=== PATIENT | female | born 1980 | race Two or more races ===

== ENCOUNTER 2018-01-25 12:59 | Inpatient (IN) | payer OTHER ==
[~2018-01-25] VITALS: Ht 165.1 cm; Wt 98.9 kg
[2018-02-02] MEDS ORDERED: PRENATAL TABLE1 EAC2 PO (02:08)
== END 2018-02-04 11:43 | DRG 775 ==
LOC: LDR 02-02 01:10 → SURG-SUITE 02-02 01:10 → OB/GYN 02-02 02:20 → LDR 02-02 03:16 → SURG-SUITE 02-02 13:19 → LDR 02-17 13:00
PROC: 0DQR0ZZ Repair Anal Sphincter, Open Approach (ICD-10-PCS; principal; 2018-02-02)
PROC: 0W8NXZZ Division of Female Perineum, External Approach (ICD-10-PCS; 2018-02-02)
PROC: 10E0XZZ Delivery of Products of Conception, External Approach (ICD-10-PCS; 2018-02-02)
PROC: 4A1HXCZ Monitoring of Products of Conception, Cardiac Rate, External Approach (ICD-10-PCS; 2018-02-02)
PROC: 3E033VJ Introduction of Other Hormone into Peripheral Vein, Percutaneous Approach (ICD-10-PCS; 2018-02-02)
PROC: 4A033R1 Measurement of Arterial Saturation, Peripheral, Percutaneous Approach (ICD-10-PCS; 2018-02-02)
DX: O70.23 Third degree perineal laceration during delivery, IIIc (principal); O42.02 Full-term premature rupture of membranes, onset of labor within 24 hours of rupture; Z3A.37 37 weeks gestation of pregnancy; Z37.0 Single live birth; Z22.330 Carrier of Group B streptococcus

== ENCOUNTER 2018-08-26 15:37 | Inpatient (IN) | payer OTHER ==
[~2018-08-26] VITALS: Ht 165.1 cm; Wt 86.2 kg
[~2018-08-26 15:37] MED LIST: PRENATAL TABLE1 EAC2 PO
--- NOTE | 2018-08-26 15:40 | NUR ---
SE RECIBE PTE ALERTA Y ORIENTADA X3, PTE REFIERE VENIR POR PANCREATITIS Y PIEDRAS EN LA VESICULA. PTE REFIERE JUSTIN ESTADO EN [facility] Y ELLOS SON LOS QUE LA REFIRIERON PARA [facility].
--- NOTE | 2018-08-26 17:35 | NUR ---
PACIENTE ALERTA Y ORIENTADA EVALUADA POR EL DR. DONALD SE ORIENTA A PACINETE SOBRE TRATAMIENTO MEDICO SE EXTRAEN MUESTRAS DE SIMON Y SE ADMINISTRAN MEDICAMENTOS ELVIRA ORDEN MEDICA BAJO MEDIDAS ASEPTICAS.
[2018-08-31] MEDS ORDERED: ZANTAC150 MG PO (11:03)
[2018-08-31] MEDS ORDERED: INVANZ1 GM IV (11:04)
[2018-08-31] MEDS ORDERED: ULTRACET PO (11:04)
== END 2018-08-31 17:52 | disposition home or self-care (01) | DRG 417 ==
LOC: ER 15:37 → SURG 22:53
PROVIDERS: Surgery; ADMIT Internal Medicine
PROC: BW40ZZZ Ultrasonography of Abdomen (ICD-10-PCS; 2018-08-26)
PROC: BF37ZZZ Magnetic Resonance Imaging (MRI) of Pancreas (ICD-10-PCS; 2018-08-26)
PROC: 02HV33Z Insertion of Infusion Device into Superior Vena Cava, Percutaneous Approach (ICD-10-PCS; 2018-08-27)
PROC: 0DNW4ZZ Release Peritoneum, Percutaneous Endoscopic Approach (ICD-10-PCS; 2018-08-30)
PROC: 0FT44ZZ Resection of Gallbladder, Percutaneous Endoscopic Approach (ICD-10-PCS; principal; 2018-08-30 12:00)
DX: K80.10 Calculus of gallbladder with chronic cholecystitis without obstruction (principal); K85.10 Biliary acute pancreatitis without necrosis or infection; K66.0 Peritoneal adhesions (postprocedural) (postinfection); E86.0 Dehydration

== ENCOUNTER 2018-09-04 14:29 | Emergency (ER) | payer OTHER ==
[~2018-09-04] VITALS: Ht 165.1 cm; Wt 81.6 kg
[~2018-09-04 14:29] MED LIST changes: +INVANZ1 GM IV; +ULTRACET PO; +ZANTAC150 MG PO
== END 2018-09-04 16:07 | disposition home or self-care (01) ==
LOC: ER 14:29
DX: Z45.2 Encounter for adjustment and management of vascular access device (principal)

== ENCOUNTER 2022-10-06 17:27 | Emergency (ER) | payer OTHER ==
[~2022-10-06] VITALS: Ht 160 cm; Wt 82.6 kg
== END 2022-10-06 20:36 | disposition home or self-care (01) ==
LOC: ER 17:27
DX: H66.91 Otitis media, unspecified, right ear (principal)

== ENCOUNTER 2023-06-23 10:33 | Emergency (ER) | payer OTHER ==
[~2023-06-23] VITALS: Ht 162.6 cm; Wt 74.8 kg
[2023-06-23] MEDS ORDERED: DUI500 PO (11:00)
[2023-06-23] MEDS ORDERED: DICLOFENAC SODI75 MG PO (11:00)
== END 2023-06-23 11:12 | disposition home or self-care (01) ==
LOC: ER 10:33
DX: H66.92 Otitis media, unspecified, left ear (principal)

== ENCOUNTER 2025-05-02 08:37 | Emergency (ER) | payer OTHER ==
[~2025-05-02] VITALS: Ht 162.6 cm; Wt 76.7 kg
[~2025-05-02 08:37] MED LIST changes: +DICLOFENAC SODI75 MG PO; +DUI500 PO
[2025-05-02] MEDS ORDERED: ONDANSETRON HCL 2 MG/ML VIAL IV STA (10:17)
[2025-05-02] MEDS ORDERED: 0.9 % SODIUM CHLORIDE 1,000 ML IV STA (10:17)
[2025-05-02] MEDS ORDERED: FAMOTIDINE/PF 20 MG/2 ML VIAL IV STA (10:17)
[2025-05-02] MEDS ORDERED: ONDANSETRON HCL 2 MG/ML VIAL ONE (10:26)
[2025-05-02] MEDS ORDERED: FAMOTIDINE/PF 20 MG/2 ML VIAL ONE (10:26)
[2025-05-02 11:18] LABS: BASO % 1.0 % (0.1-1.2); EOS # 0.06 (0.04-0.54); EOS % 1.0 % (0.7-7.0); LYMPH # 1.34 (1.18-3.74); LYMPH % 21.5 % (19.3-53.1); MEAN PLATELET VOLUME 11.20 fl (9.4-12.4); MONO # 0.35 (0.24-0.82); MONO % 5.6 % (4.7-12.5); NEUT # 4.42 (1.56-6.13); NEUT % 70.7 % (34.0-71.1); RED CELL DISTRIBUTION WIDTH 16.9 % (11.6-14.4)
[2025-05-02 11:26] LABS: ERYTHROCYTE SEDIMENTATION RATE 27 mm/hr (0-20)
[2025-05-02 11:33] LABS: URINE APPEARANCE Clear; URINE BILIRRUBIN Negative (NEGATIVE); URINE BLOOD Negative; URINE COLOR Yellow; URINE GLUCOSE Negative (NEGATIVE); URINE KETONE Trace (NEGATIVE); URINE LEUKOCYTE Negative; URINE NITRATE Negative; URINE PROTEIN Negative (NEGATIVE); URINE UROBILINOGEN 0.2 E.U./dl
[2025-05-02 11:38] LABS: URINE BACTERIA 137.2 uL (0.0-1933); URINE EPITHELIAL CELLS 25.4 uL (0.0-38.8); URINE RBC 2.8 uL (0.0-20.8); URINE WBC 2.9 uL (0.0-23.2)
[2025-05-02 11:43] LABS: ALT/SGPT 21 U/L (12-78); AST/SGOT 13 U/L (15-37); BILIRUBIN TOTAL 0.32 mg/dL (0.3-1.2); BUN CREA RATIO 18 (7.0-25.0); CREATININE SERUM 0.61 mg/dL (0.55-1.02); GFR 107.56; GLOBULINA 3.9 G/DL (2.4-3.5); GLUCOSE FASTING 81 mg/dL (65-100); OSMOLALITY SERUM 280 MOSM/KG (275-295)
[2025-05-02 11:45] LABS: URINE CAST 0.28 uL (0.0-1.40)
[2025-05-02 11:56] LABS: INR 1.02
[2025-05-02] MEDS ORDERED: LEVSIN/SL0.125 MG SL (17:43)
[2025-05-02] MEDS ORDERED: PEPCID AC20 MG PO (17:43)
[2025-05-02] MEDS ORDERED: INTESTINEX680 M2 PO (17:43)
== END 2025-05-02 18:02 | disposition home or self-care (01) ==
LOC: ER 08:37
PROVIDERS: Physician Assistant Medical
DX: K52.89 Other specified noninfective gastroenteritis and colitis (principal); B34.8 Other viral infections of unspecified site; E86.0 Dehydration